=== PATIENT | female | born 2000 | race Caucasian/White ===

== ENCOUNTER 2025-01-31 15:57 | Emergency (ER) | payer BC, OTHER, SELFPAY ==
[2025-01-31 15:58] VITALS: BP 119/68; PULSE 131; RESP 18; TEMP 36.6; O2SAT 99; BMI 24.1
--- NOTE | 2025-01-31 16:02 | ECG_ITS ---
APPROVED REPORT Exam: Resting ECG HR:130 bpm ECG Measurements Heart Rate 130 AXES QRSd 90 QRS 79 QT 333 T -47 QTc [address] DEVIATION AND MODERATE T-WAVE ABNORMALITY, CONSIDER ANTEROLATERAL ISCHEMIA [-0.1+ mV T-WAVE IN V3-V6] ST DEVIATION AND MODERATE T-WAVE ABNORMALITY, CONSIDER INFERIOR ISCHEMIA [-0.1+ mV T-WAVE IN II/aVF] ABNORMAL ECG Electronically signed by : BRANDON AZEVEDO, 01/31/2025 23:41:10
[2025-01-31 16:23] LABS: Coronavirus 19, PCR Not Detected (NotDetected); Influenza A, PCR Not Detected (NotDetected); Influenza B, PCR Not Detected (NotDetected)
--- NOTE | 2025-01-31 16:53 | ED_ITS ---
Discharge Plan Disposition Chief Complaint: Urogenital-Female Referrals Follow up/Referrals: Provider,Referral, [Primary Care Provider] - See instructions Instructions Patient Instructions: DI for Urinary Tract Infection (UTI), DI for Urinary Tract Infection in Children Print Language Print Language: Vietnamese Discharge ED Provider: Rai Swan General Chief Complaint: Urogenital-Female Stated Complaint: chest pain Time Seen by Provider: 01/31/25 16:51 Mode of Arrival: Ambulatory Source of Information: Patient Description of Symptoms (Recalled from ER Triage Doc. by RN): Pt presents for evaluation of multiple complaints. Pt expresess concern about her IUD. IUD placed on November 28. Pt states she has expressed concern about the IUD placement but her OB will not remove it. Pt states she has also been bleeding since her on November 28. Pt states she has been having chest tightne ss, had a rash over the weekend. Pt states she was seen at an OSH over the weekend for the same thing and had a negative workup. Pt has also had n/v. Pt has a dry cough. Related Data Allergies Allergy/AdvReac Type Severity Reaction Status Date / Time No Known Allergies Allergy Unverified 11/10/17 14:10 [facility] Disclaimer: The information contained in this section may have been updated after the patient was seen, as this information can be updated by other users. Social History Have you lived/traveled outside US in past 30 days?: No Contact w/someone who lives/traveled outside US past 30 days?: No Exposure to someone with infectious disease in past 14 days?: No Do you have a fever (greater than 100.4 F or 38 C)?: No Have you tested positive for COVID-19: No Exposed to someone with COVID-19 in past 14 days?: No Do you have a sore throat?: No Do you have a cough?: No Do you have any weakness?: No Do you have any diarrhea?: No Are you experiencing any unusual bleeding?: No Do you have any muscle aches/pain?: No Do you have any abdominal pain?: No Are you experiencing loss of taste or smell?: No Medical Decision Making Vital Signs Vital Signs: 01/31/25 15:58 Temperature 97.9 F Temperature Source Temporal Artery Scan Pulse Rate [Right] 131 H Respiratory Rate 18 Blood Pressure [Right Arm] 119/68 Blood Pressure Mean [Right Arm] 85 Blood Pressure Source [Right Arm] Automatic Cuff Blood Pressure Position [Right Arm] Sitting 02 Sat by Pulse Oximetry 99 Oxygen Delivery Method Room Air Response Orders (Tests/Meds): ORDERS Category Date Time Status Rapid PCR Covid and Flu A/B Stat Lab 01/31/25 16:10 Received ECG Data Tracing #1: ECG Narrative: Independently interpreted by me rate is 130, rhythm is regular, axis is normal, no ST elevation in anatomical contiguous leads, nonspecific ST changes in inferior leads, QTc 410
--- NOTE | 2025-01-31 17:00 | CT_ITS ---
PROCEDURE INFORMATION: Exam: CT Abdomen And Pelvis With Contrast Exam date and time: 01/31/2025 7:11 PM Age: 25 years old Clinical indication: Other: Abdominal pain, vaginal bleeding, nausea vomit TECHNIQUE: Imaging protocol: Computed tomography of the abdomen and pelvis with contrast. 3D rendering (Not supervised by radiologist): MIP and/or 3D reconstructed images were created by the technologist. Radiation optimization: All CT scans at this facility use at least one of these dose optimization techniques: automated exposure control; mA and/or kV adjustment per patient size (includes targeted exams where dose is matched to clinical indication); or iterative reconstruction. Contrast material: ISOVUE; Contrast volume: 80 ml; Contrast route: IV; COMPARISON: CT ANGIO CHEST PE PROTOCOL 01/31/2025 7:11 PM FINDINGS: Tubes, catheters and devices: None noted. Lungs: Lung bases appear clear. Heart: No significant coronary calcifications. No cardiomegaly. No significant pericardial effusion. Liver: Normal. No mass. Gallbladder and biliary ducts: Cholecystectomy. No ductal dilation. Pancreas: Normal. No ductal dilation. Spleen: Normal. No splenomegaly. Adrenal glands: Normal. No mass. Kidneys and ureters: Normal. No hydronephrosis. Stomach and bowel: Unremarkable. No obstruction. No mucosal thickening. Appendix: No evidence of appendicitis. Intraperitoneal space: Unremarkable. No free air. No significant fluid collection. Retroperitoneal space: No significant retroperitoneal inflammatory changes are noted. Vasculature: Unremarkable. No abdominal aortic aneurysm. Lymph nodes: Unremarkable. No enlarged lymph nodes. Urinary bladder: Unremarkable as visualized. Reproductive: IUD in place. Anteflexed uterus. Bones/joints: Unremarkable. No acute fracture. Soft tissues: Unremarkable. IMPRESSION: 1. No acute findings. 2. Cholecystectomy. 3. IUD in place.
--- NOTE | 2025-01-31 17:03 | ED_ITS ---
<Statement entered by aRi Swan MD - 01/31/25 23:25> I was consulted by the ELIAS, and we discussed the complexity of the problems being addressed. I approved the treatment and management plan for this patient's care in the emergency department, thus performing a substantive portion of the medical decision making. Rai Swan MD Discharge Plan Disposition Patient Disposition: Home, Self-Care Condition: Good Chief Complaint: Urogenital-Female Referrals Follow up/Referrals: Provider,MD Leandro [Primary Care Provider] - See instructions Chau Chappell MD [Staff Physician] - See instructions Activity Restrictions/Add. Instructions Additional Instructions/Restrictions: Return to the emergency department any worsening signs or symptoms, continue take all medication as prescribed. Follow-up with PCP and ACCOUNT OFFICER as directed. Clinical Impressions Clinical Impression: Urinary tract infection, IUD (intrauterine device) in place, Fatigue, URI (upper respiratory infection), Hypokalemia Instructions Patient Instructions: DI for Urinary Tract Infection (UTI), DI for Viral Upper Respiratory Infection -- Adult Print Language Print Language: Azeri Discharge ED Provider: Rai Swan General Adult HPI General Chief complaint: Urogenital-Female Stated complaint: chest pain Time Seen by Provider: 01/31/25 16:51 Mode of Arrival: Ambulatory Source of Information: Patient Description of Symptoms (Recalled from ER Triage Doc. by RN): Pt presents for evaluation of multiple complaints. Pt expresess concern about her IUD. IUD placed on November 28. Pt states she has expressed concern about the IUD placement but her OB will not remove it. Pt states she has also been bleeding since her on November 28. Pt states she has been having chest tightness, had a rash over the weekend. Pt states she was seen at an OSH over the weekend for the same thing and had a negative workup. Pt has also had n/v. Pt has a dry cough. History of Present Illness HPI narrative: 25-year-old female presents to the emergency department with multiple medical complaints. She has somewhat flight of ideas and somewhat of a poor historian, however patient states that [facility] on November 28 she is and had a section, she was seen by highway maintenance worker , he also had an IUD placement at that time. She is concerned that her IUD is messed up . She endorses vaginal bleeding, abdominal pain, nausea, cough, multiple rashes, was seen at outside facility/multiple outside facilities, most recent being at [facility] [place] 2 days ago for diffuse rash that started on her chest and migrated to all extremities and head and neck, she states that she was given Benadryl, Pepcid, and Benadryl and rash is subsided, she is now experiencing some chest tightness, SOA, denies any urinary type symptomatology, denies diarrhea constipation, she admits to pain with intercourse, any melena, hematochezia, hematemesis denies any substance use, admits to anxiety/depression, frequent/chronic UTIs for which she takes Macrobid daily, tells me she has had multiple abdominal surgeries, to include colostomy bag, appendectomy, cholecystectomy, she does me that she had a cholestasis of , was told this by her ACCOUNT OFFICER initial triage vitals notable for tachycardia otherwise unremarkable. Onset (ago): week(s) Related Data Allergies Allergy/AdvReac Type Severity Reaction Status Date / Time adhesive Allergy Blister Verified 01/31/25 17:58 amoxicillin Allergy Rash Verified 01/31/25 17:58 chlorhexidine Allergy Blister Verified 01/31/25 17:58 iodine Allergy Blister Verified 01/31/25 17:58 morphine Allergy Rash Verified 01/31/25 17:58 povidone-iodine (From Allergy Blister Verified 01/31/25 17:58 Betadine) Sulfa (Sulfonamide Allergy Rash Verified 01/31/25 17:58 Antibiotics) [facility] Disclaimer: The information contained in this section may have been updated after the patient was seen, as this information can be updated by other users. Social History Smoking Status: Never smoker alcohol intake: never current occupational status: other Travel in the last 8 weeks: None ROS Obtained: Yes All systems reviewed & no additional complaints except as documented Physical Exam General General appearance: alert, in no apparent distress and anxious Head Head exam: atraumatic and normocephalic Eye Eye exam: Present PERRL and EOMI ENT ENT exam: Present mucous membranes moist Neck Neck exam: Present normal inspection Chest Chest inspection: Present normal inspection and symmetric chest wall rise Respiratory Respiratory exam: Present normal lung sounds bilaterally; Absent respiratory distress, wheezes or stridor Cardiovascular Cardiovascular exam: Present regular rate and tachycardia Abdominal Exam Abdominal exam: Present soft and tenderness; Absent guarding, rebound, rigidity or normal bowel sounds Abdominal tenderness: Present diffuse and mild Comment: Mild diffuse abdominal tenderness to palpation, no guarding. Extremities Exam Extremities exam: Present normal inspection Neurological Exam Neurological exam: Present alert and oriented X3 Psychiatric Psychiatric exam: Present normal affect Skin Skin exam: Present warm and dry Medical Decision Making Medical Records Medical records reviewed: Yes I reviewed the patient's medical records. Screening: Per USPSTF and CDC recommendations, given the prevalence of disease in our region, it is our hospital?s policy to screen for HIV and viral Hepatitis for all patients aged 18 and over and those with ongoing risk factors. Eddie Inquiry Pt receiving controlled substance: No Eddie was queried for this patient: No Vital Signs: 01/31/25 15:58 01/31/25 17:26 01/31/25 18:50 Temperature 97.9 F Temperature Source Temporal Artery Scan Pulse Rate 115 H Pulse Rate [Right] 131 H Respiratory Rate 18 Blood Pressure 108/64 L 107/69 L Blood Pressure [Right Arm] 119/68 Blood Pressure Mean [Right Arm] 85 Blood Pressure Source Blood Pressure Source [Right Arm] Automatic Cuff Blood Pressure Position Blood Pressure Position [Right Arm] Sitting 02 Sat by Pulse Oximetry 99 99 Oxygen Delivery Method Room Air Room Air 01/31/25 19:29 01/31/25 19:59 Temperature 98.4 F Temperature Source Oral Pulse Rate 118 H 103 H Pulse Rate [Right] Respiratory Rate 24 Blood Pressure 98/71 L Blood Pressure [Right Arm] Blood Pressure Mean [Right Arm] Blood Pressure Source Automatic Cuff Blood Pressure Source [Right Arm] Blood Pressure Position Sitting Blood Pressure Position [Right Arm] 02 Sat by Pulse Oximetry 93 L Oxygen Delivery Method Room Air Lab Data Lab results reviewed: Yes I reviewed the patient's lab results. Lab Results 01/31/25 15:32: Lactate 1.7 01/31/25 16:10: SARS-CoV-2 (PCR) Not detected, Influenza A Untype (PCR) Not detected, Influenza Type B (PCR) Not detected 01/31/25 17:20: WBC 4.7 L, RBC 4.60, Hgb 12.9, Hct 39.6, MCV 86.1, MCH 28.0, MCHC 32.6, RDW 12.4, Plt Count 277, MPV 10.2, Neut % (Auto) 67.6, Lymph % (Auto) 17.1, [place] % (Auto) 11.3 H, Eos % (Auto) 3.4, Baso % (Auto) 0.4, Neut # (Auto) 3.2, Lymph # (Auto) 0.8, [place] # (Auto) 0.5, Eos # (Auto) 0.2, Baso # (Auto) 0.0, Sodium 142, Potassium 3.1 L, Chloride 103, Carbon Dioxide 24, Anion Gap 18.1 H, BUN 11, Creatinine 0.70, Estimated Creat Clear 130, Estimated GFR 104, Est GFR ( Amer) 125, Glucose 86, Calcium 9.2, Magnesium 1.7, Total Bilirubin 0.6, AST 35, ALT 43, Alkaline Phosphatase 95, Troponin I < 0.01, NT-Pro-B Natriuret Pep 33.9, Total Protein 8.8 H, Albumin 5.3 H, Globulin 3.5 H, Albumin/Globulin Ratio 1.5, Lipase 114, TSH 0.92, Thyroxine (T4) 10.2 01/31/25 17:50: Urine Opiates Screen Negative, Urine Methadone Screen Negative, Ur Barbituates Screen Negative, Ur Phencyclidine Scrn Negative, Ur Amphetamines Screen Negative, U Benzodiazepines Scrn Negative, Urine Cocaine Screen Negative, U Marijuana (THC) Screen Negative 01/31/25 17:51: Urine Color Yellow, Urine Appearance Slightly cloudy, Urine pH 6.0, Ur Specific [place] 1.030, Urine Protein Trace A, Urine Glucose (UA) Negative, Urine Ketones Negative, Urine Blood 4+ A, Urine Nitrate Negative, Urine Bilirubin Trace, Urine Urobilinogen 0.2, Ur Leukocyte Esterase Trace A, Urine RBC 10-20, Urine WBC 10-20, Ur Squamous Epith Cells 5-10, Urine Bacteria 2+, Urine Mucus 1+, Urine HCG, Qual Negative 01/31/25 17:20 01/31/25 17:20 Orders (Tests/Meds): ED MEDICATIONS Generic Name Dose Route Start Last Admin Trade Name Freq PRN Reason Stop Dose Admin Sodium Chloride 10 ml 01/31/25 19:11 01/31/25 19:12 Sodium Chloride 0.9% 10ml Syr (Rad Only) IV 03/02/25 19:10 10 ml NEEDED PRN Administration Maintain IV Site Discontinued Medications Generic Name Dose Route Start Last Admin Trade Name Freq PRN Reason Stop Dose Admin Iopamidol 70 ml 01/31/25 19:11 01/31/25 19:12 Iopamidol-370 (76%);100ml Bottle IV 01/31/25 19:12 70 ml ONCE ONE Administration Lidocaine HCl 5 ml 01/31/25 19:36 01/31/25 19:41 Lidocaine 2% 5ml Pf Vial IH 01/31/25 19:37 5 ml ONCE ONE Administration Potassium Chloride 40 meq 01/31/25 18:16 01/31/25 18:27 Potassium Chloride 20meq Tab PO 01/31/25 18:17 40 meq ONCE ONE Administration Sodium Chloride 50 ml 01/31/25 19:11 01/31/25 19:12 0.9 % Sodium Chloride 50 Ml Vial IV 01/31/25 19:12 50 ml ONCE ONE Administration ORDERS Category Date Time Status CT abdomen pelvis w con Stat Cat Scan 01/31/25 17:00 Completed CTA Chest [CT angio chest PE protocol] Stat Cat Scan 01/31/25 17:05 Completed XR chest portable Stat Exams 01/31/25 17:03 Completed Complete Blood Count Auto Diff Stat Lab 01/31/25 17:20 Completed Comprehensive Metabolic Panel Stat Lab 01/31/25 17:20 Completed Drug Screen,Urine Stat Lab 01/31/25 17:50 Completed Lactic Acid Stat Lab 01/31/25 15:32 Completed Lipase Stat Lab 01/31/25 17:20 Completed Magnesium Stat Lab 01/31/25 17:20 Completed NT Pro Brain Natriuretic Pep. Stat Lab 01/31/25 17:20 Completed Rapid PCR Covid and Flu A/B Stat Lab 01/31/25 16:10 Completed T4 (Thyroxine) Stat Lab 01/31/25 17:20 Completed TSH [Thyroid Stimulating Hormone] Stat Lab 01/31/25 17:20 Completed Troponin I Q3H Lab 01/31/25 20:00 Received Troponin I Q3H Lab 01/31/25 23:15 Ordered Troponin I Stat Lab 01/31/25 17:20 Completed Urinalysis and Microscopic Stat Lab 01/31/25 17:51 Completed Urine , HCG Qual. Stat Lab 01/31/25 17:51 Completed Urine Culture Stat Micro 01/31/25 17:51 Received Medical Decision Narrative: 25-year-old female presents emergency department multiple medical complaints, see HPI for detail past medical history. Differential diagnose include but not limited to, thyrotoxicosis, pneumonia, endometriosis ovarian cyst, colitis, ileitis, cholelithiasis, diverticulitis, cardiac arrhythmia, electrolyte disturbance, acute URI, acute bronchitis, factitious disorder, anxiety type reaction, ACS, PE. Discussed patient case with infusion Obtain basic laboratory studies, lactic acid level, lipase level, magnesium level proBNP troponin urinalysis, CTA chest with and without contrast,, rapid antigen swabs for COVID and flu, urine hCG qualitative, troponin, CT and pelvis with contrast, chest x-ray, EKG, TSH with reflex T4. CBC is unremarkable Covid 19 is negative influenza A is negative influenza B is negative. CMP is notable for minimal hypokalemia at 3.1, anion gap is increased at 18.1, transaminases within normal limits, Lipase and lactate level within normal limits. Will give patient 40 mill equivalents p.o. potassium for hypokalemia. T7upiass normal limits, hCG qualitative is negative. UDS negative. Patient complaining of persistent cough, will give patient lidocaine 5 mL nebulizer for cough and shortness of air. Troponin and proBNP within normal limits, TSH within normal limits. I reviewed the patient's CT abdomen pelvis with contrast along the corresponding radiologic report, no acute findings, cholecystectomy and IUD is in place. Reviewed the patient's chest x-ray along the corresponding radiologic report no acute findings. I reviewed the patient's CTA chest with and without contrast along the corresponding radiologic report, evidence of cholecystectomy but no CT evidence of pulmonary embolus. Urinalysis notable for trace proteinuria, 4+ hematuria, trace leukocyte esterase, 10-20 RBCs, 10-20 WBCs, 5-10 epithelial cells, 2+ urine bacteria, 1+ urine mucus. Discussed all the results with the patient at the bedside, patient's tachycardia has improved, SpO2 within normal limits, blood pressure within normal limits, I recommend follow-up with ACCOUNT OFFICER provider PCP and other providers as directed, return to the emerged part with any worsening signs or symptoms. Patient voiced understanding agreement current treatment plan/discharge plan will continue all her medication as prescribed. Critical Care Critical Care Time Critical Care Time: No
--- NOTE | 2025-01-31 17:03 | XR_ITS ---
PROCEDURE INFORMATION: Exam: XR Chest Exam date and time: 01/31/2025 7:20 PM Age: 25 years old Clinical indication: Shortness of breath; Additional info: sophy RAM TECHNIQUE: Imaging protocol: Radiologic exam of the chest. Views: 1 view. COMPARISON: CT ANGIO CHEST PE PROTOCOL 01/31/2025 7:11 PM FINDINGS: Lungs: Unremarkable. No consolidation. Pleural spaces: Unremarkable. No pleural effusion. No pneumothorax. Heart/Mediastinum: Unremarkable. No cardiomegaly. Bones/joints: Unremarkable. IMPRESSION: No acute findings.
--- NOTE | 2025-01-31 17:05 | CT_ITS ---
PROCEDURE INFORMATION: Exam: CTA Chest With Contrast Exam date and time: 01/31/2025 7:11 PM Age: 25 years old Clinical indication: Shortness of breath; Additional info: SOA chest pain TECHNIQUE: Imaging protocol: Computed tomographic angiography of the chest with contrast. Exam focused on the arteries. 3D rendering (Not supervised by radiologist): MIP and/or 3D reconstructed images were created by the technologist. Radiation optimization: All CT scans at this facility use at least one of these dose optimization techniques: automated exposure control; mA and/or kV adjustment per patient size (includes targeted exams where dose is matched to clinical indication); or iterative reconstruction. Contrast material: ISO 370; Contrast volume: 80 ml; Contrast route: INTRAVENOUS (IV); COMPARISON: CT ANGIO CHEST PE PROTOCOL 01/31/2025 7:11 PM FINDINGS: Pulmonary arteries: No CTA evidence of pulmonary embolus. Aorta: Unremarkable. No aortic aneurysm. No aortic dissection. Lungs: Unremarkable. No consolidation. No masses. Pleural spaces: Unremarkable. No pneumothorax. No pleural effusion. Heart: Unremarkable. No cardiomegaly. No pericardial effusion. Lymph nodes: Unremarkable. No enlarged lymph nodes. Gallbladder and biliary ducts: Cholecystectomy. Bones/joints: Unremarkable. No acute fracture. Soft tissues: Unremarkable. IMPRESSION: 1. Cholecystectomy. 2. No CTA evidence of pulmonary embolus.
--- NOTE | 2025-01-31 17:10 | PC.NURSE ---
pt brought back from triage to chair 13. pt has numerous complaints. pt states she had a C/S on November 28. pt states she then had a mirena placed by [facility]. She reports they are refusing to remove it after her reporting negative side affects. pt states she is having generalized abd/groin pain that is sharp/stabbing/cramping in nature and 7/10. pt reports N/V, lightheadedness, cough, rash, generalized itching, no PO intake x2d, and painful intercourse. pt states she went to [facility] ED on Thursday and was given Benadryl, prednisone, and Pepcid without any relief. Pt reports her liver enzymes were elevated at this time. pt reports she has a hx of an appe, lavell, and her entire large intestine removed.
[2025-01-31 17:26] VITALS: BP 108/64
[2025-01-31 17:30] LABS: Basophils % 0.4 % (0.1-2.0); Eosinophils # 0.2 K/mm3 (0.0-0.4); Eosinophils % 3.4 % (0.1-12.0); Hematocrit 39.6 % (37.0-47.0); Hemoglobin 12.9 g/dL (12.2-16.2); Lymphocytes # 0.8 K/mm3 (0.7-4.5); Lymphocytes % 17.1 % (10-50); Mean Corpuscular HGB Conc 32.6 g/dL (31.8-35.4); Mean Corpuscular Volume 86.1 fl (81-99); Mean Platelet Volume 10.2 fl (7.4-10.4); Monocytes # 0.5 K/mm3 (0.1-1.0); Monocytes % 11.3 % (1.7-9.3); Neutrophils # 3.2 K/mm3 (1.8-7.8); Neutrophils % 67.6 % (37.0-80.0); Platelet Count 277 K/mm3 (142-424); Red Cell Distribution Width 12.4 % (11.5-17.5); White Blood Count 4.7 K/mm3 (4.8-10.8)
--- NOTE | 2025-01-31 17:34 | PC.NURSE ---
pt in bathroom attempting urine sample
[2025-01-31 17:42] LABS: Albumin Level 5.3 g/dl (3.5-5.0); Chloride 103 mmol/L (98-107); Sodium 142 mmol/L (136-145)
[2025-01-31 17:43] LABS: Potassium 3.1 mmoL/L (3.5-5.1)
[2025-01-31 17:45] LABS: Alanine Aminotransferase 43 U/L (12-78); Albumin/Globulin Ratio 1.5 (1.1-1.8); Alkaline Phosphatase 95 U/L (38-126); Anion Gap 18.1 mEq/L (5-15); Aspartate Amino Transferase 35 U/L (14-36); Bilirubin,Total 0.6 mg/dl (0.2-1.3); Blood Urea Nitrogen 11 mg/dl (7-17); Calcium 9.2 mg/dl (8.4-10.2); Carbon Dioxide 24 mmol/L (22.0-30.0); Creatinine Clearance Estimated 130 mL/min (50-200); Estimated Glomerular Filt Rate 104 ml/min (>60); GFR (African American) 125 ML/MIN (>60); Globulin 3.5 g/dL (1.3-3.2); Glucose 86 mg/dl (74-100); Lipase 114 U/L (23-300); Magnesium 1.7 mg/dl (1.6-2.3); Total Protein,Serum 8.8 g/dl (6.3-8.2)
[2025-01-31 17:53] LABS: Lactic Acid 1.7 mmol/L (0.7-2.1)
[2025-01-31 17:55] LABS: Microscopic, Urine URINE MICROSCOPIC (MICROSCOPIC)
[2025-01-31 17:55] LABS: NT Pro Brain Natriuretic Pep. 33.9 pg/mL (0-125)
[2025-01-31 18:02] LABS: T4 (Thyroxine) 10.2 ug/dl (5.53-11.0)
[2025-01-31 18:21] LABS: Troponin I < 0.01 ng/ml (0.00-0.034)
[2025-01-31] MEDS: POTASSIUM CHLORIDE 20MEQ TAB 40 MEQ PO (18:27)
--- NOTE | 2025-01-31 18:29 | PC.NURSE ---
I rounded on the pt. no new complaints at this time. no needs voiced. call carrera in reach.
[2025-01-31 18:50] VITALS: BP 107/69; PULSE 115; O2SAT 99
[2025-01-31 19:01] LABS: Urine Pregnancy, HCG Qual. Negative (Negative)
[2025-01-31 19:12] LABS: Barbiturates Screen,Urine Negative ng/ml (<200)
[2025-01-31] MEDS: 0.9 % SODIUM CHLORIDE 50 ML VIAL IV (19:12)
[2025-01-31] MEDS: SODIUM CHLORIDE 0.9% 10ML SYR (RAD ONLY) 10 ML IV (19:12)
[2025-01-31] MEDS: IOPAMIDOL-370 (76%);100ML BOTTLE 70 ML IV (19:12)
[2025-01-31 19:13] LABS: Benzodiazepines Screen,Urine Negative ng/ml (<200)
[2025-01-31 19:14] LABS: Amphetamine/Metha Screen,Urine Negative ng/ml (<1000); Cocaine Screen,Urine Negative ng/ml (<300)
--- NOTE | 2025-01-31 19:14 | PC.NURSE ---
Report received from Karlee CLEMONS Pt in xray at this time
[2025-01-31 19:15] LABS: Methadone Screen,Urine Negative ng/ml (<300)
[2025-01-31 19:16] LABS: Cannabinoid Screen,Urine Negative ng/ml (<50); Opiate Screen,Urine Negative ng/ml (<300)
[2025-01-31 19:17] LABS: Phencyclidine Screen,Urine Negative ng/ml (<25)
[2025-01-31 19:25] LABS: Thyroid Stimulating Hormone 0.92 uIU/mL (0.465-4.68)
[2025-01-31 19:29] VITALS: BP 98/71; PULSE 118; RESP 24; TEMP 36.9; O2SAT 93
--- NOTE | 2025-01-31 19:39 | PC.NURSE ---
/PA made aware of HR, Sao2 and cough
[2025-01-31] MEDS: LIDOCAINE 2% 5ML PF VIAL 5 ML IH (19:41)
--- NOTE | 2025-01-31 19:42 | PC.NURSE ---
Resp therapy here to do treatment for cough
[2025-01-31 19:44] LABS: Appearance,Urine Slightly Cloudy (Clear); Color,Urine Yellow (Yellow); Glucose,Urine (UA) Negative (Negative); Ketones,Urine Negative (Negative); Protein,Urine Trace (Negative)
[2025-01-31 19:45] LABS: Bilirubin,Urine Trace (Negative); Blood, Urine 4+ (Negative); Leukocyte Esterase,Urine Trace (Negative); Nitrate,Urine Negative (Negative); Urobilinogen,Urine 0.2 EU/dl (0.2)
[2025-01-31 19:59] VITALS: PULSE 103
--- NOTE | 2025-01-31 20:10 | PC.NURSE ---
Repeat troponin drawn and sent to lab
[2025-01-31 20:34] LABS: Bacteria,Urine 2+ /lpf; Mucus,Urine 1+ /lpf
[2025-01-31 20:44] LABS: Troponin I < 0.01 ng/ml (0.00-0.034)
[2025-01-31 20:52] VITALS: BP 100/70; PULSE 100; RESP 20; TEMP 36.9; O2SAT 94
== END 2025-01-31 20:53 | disposition home or self-care (01) ==
PROVIDERS: Physician Assistant; Emergency Provider Emergency Medicine
DX: N39.0 Urinary tract infection, site not specified (principal); E87.6 Hypokalemia; J06.9 Acute upper respiratory infection, unspecified; R07.9 Chest pain, unspecified; N93.9 Abnormal uterine and vaginal bleeding, unspecified; R21 Rash and other nonspecific skin eruption; R11.2 Nausea with vomiting, unspecified; R05.9 Cough, unspecified; R10.9 Unspecified abdominal pain; R06.02 Shortness of breath; R53.83 Other fatigue; Z97.5 Presence of (intrauterine) contraceptive device
CPT/HCPCS: 71045; 71275; 74177; 80053; 80307; 81001; 81025; 83605; 83690; 83735; 83880; 84436; 84443; 84484; 85025; 87086; 87636; 93005; 99285; Q9967